=== PATIENT | male | born 1950 | race Caucasian/White ===

== ENCOUNTER → 2021-03-20 | Outpatient (CLI) | payer MEDICARE ==
--- NOTE | 2021-03-21 04:11 | MR ---
EXAMINATION TYPE: MR lumbar spine wo con DATE OF EXAM: 03/20/2021 COMPARISON: None HISTORY: NO prior, low back pain, right hip pain, osteoarthritis Multiplanar multiecho imaging of the lumbar spine without contrast. There is patchy mixed signal pattern throughout the lumbar vertebra. There is anterior wedging of T12 vertebra 40%. Fracture appears old. There is L1 and L2 and L3-4 and L4-5 posterior disc bulging with some encroachment on the spinal canal. There is developmentally large spinal canal and no significan t stenosis. There is no lumbar paraspinal mass. The posterior elements are intact. Lumbar nerve roots appear intact. There is mild multilevel neural foraminal narrowing due to disc space narrowing and f acet arthropathy. IMPRESSION: Multilevel spondylotic changes. Patchy signal pattern consistent with variable fatty marrow replaceme nt. No suspicious bone lesion. Compression fracture of T12 appears old.
== END | disposition home or self-care (01) ==
LOC: RADMRIMAIN 20:16
PROVIDERS: ATTEND Orthopaedic Surgery Orthopaedic Surgery of the Spine
DX: M54.50 Low back pain, unspecified (principal); M25.551 Pain in right hip; Z87.311 Personal history of (healed) other pathological fracture
CPT/HCPCS: 72148

== ENCOUNTER 2021-12-29 07:47 | Day surgery (SDC) | payer MEDICARE ==
[~2021-12-29 07:47] MED LIST: LACTATED RINGERS 1,000 ML IV SCH
[2021-12-29 08:10] VITALS: TEMP 98
[2021-12-29] MEDS ORDERED: PROPOFOL 10 MG/ML 20 ML VIAL IV ONE (08:58)
[2021-12-29] MEDS ORDERED: LIDOCAINE 2% INJ 20 MG/ML (2 ML VIAL) ONE (08:58)
--- NOTE | 2021-12-29 09:21 | P.PCN ---
Date of Procedure: 12/29/21 Procedure(s) Performed: Brief history: Patient is a pleasant 71-year-old white female scheduled for an elective upper endoscopy as well as colonoscopy as a part of evaluation of right upper quadrant abdominal pain, unintentional weight loss of 40 pounds and recently diagnosed with chronic hep C infection. He had a CT of abdomen and pelvis showed that revealed multiple solid and cystic masses in the liver suspicious for metastasis versus hepatoma. He Has No Prior History of EGD or Colonoscopy. Procedure performed: Esophagogastroduodenoscopy with biopsy Colonoscopy Preoperative diagnosis: Right upper quadrant abdominal pain, unintentional weight loss of [address] of the abdomen revealed multiple solid and cystic lesions suspicious for metastasis versus hepatoma Anesthesia: MAC Procedure: After informed consent was obtained from the patient was brought into the endoscopy unit and IV sedation was administered by anesthesia under continuous monitoring. Initially upper endoscopy was done. The Olympus GF 160 video endoscope was inserted inserted into the mouth and esophagus intubated without any difficulty and was gradually advanced into the stomach and duodenum and carefully examined. The bulb and second part of the duodenum appeared normal. The scope was then withdrawn into the stomach adequately insufflated with air and upon careful examination the antrum and body, cardia and fundus appeared normal. The scope was then withdrawn into the esophagus. The GE junction was located at 40 cm to the incisors. It appeared regular with no erythema erosions or ulcerations. Rest of the esophagus appeared normal. Patient tolerated the procedure well. At this time the patient continued to remain sedation. Initial digital rectal examination was normal. Olympus CF 160 video colonoscope was then inserted into the rectum and gradually advanced to the cecum without any difficulty. Careful examination was performed as the scope was gradually being withdrawn. The prep was excellent. The cecum, ascending colon, transverse colon, descending colon, sigmoid colon and rectum appeared normal. Retroflexion was performed in the rectum and no lesions were noted. Patient tolerated the procedure well. Impression: 1. Endoscopy revealed small esophageal varices, Cuellar's esophagus and hiatal hernia 2. Colonoscopy was within normal limits with no evidence of colorectal neoplasia Recommendations: Findings of this examination were discussed with the patient as well as his family. He was advised to follow with the biopsy results. In the meantime the patient will be investigated further. He scheduled for an MRI of the liver and he'll be seen in office in 2 weeks.
[2021-12-29 09:26] VITALS: BP 151/91; PULSE 83; RESP 16
== END 2021-12-29 10:02 | disposition home or self-care (01) ==
LOC: ORWHC2ENDO 07:47
PROVIDERS: ATTEND Internal Medicine Gastroenterology
DX: Z12.11 Encounter for screening for malignant neoplasm of colon (principal); K22.70 Barrett's esophagus without dysplasia; B18.2 Chronic viral hepatitis C; I25.10 Atherosclerotic heart disease of native coronary artery without angina pectoris; F12.90 Cannabis use, unspecified, uncomplicated; Z88.5 Allergy status to narcotic agent; Z88.8 Allergy status to other drugs, medicaments and biological substances
CPT/HCPCS: 88305; 43239; G0121; J2704; J2001; 45378

== ENCOUNTER → 2021-12-29 | Outpatient (CLI) | payer MEDICARE ==
[2021-12-29 16:00] LABS: Basophils # (A) 0.07 X 10*3/uL (0.00-0.10); Basophils % (A) 0.8 %; Eosinophils # (A) 0.05 X 10*3/uL (0.04-0.35); Eosinophils % (A) 0.6 %; HCT 40.8 % (39.6-50.0); HGB 13.8 g/dL (13.0-17.0); Immature Grans, Automated 0.4 %; Lymphocytes # (A) 2.29 X 10*3/uL (0.90-5.00); Lymphocytes % (A) 27.5 %; MCH 31.7 pg (27.0-32.0); MCHC 33.8 g/dL (32.0-37.0); MCV 93.6 fL (80.0-97.0); Mean Platelet Volume 11.1 fL (9.5-12.2); Monocytes # (A) 0.72 X 10*3/uL (0.20-1.00); Monocytes % (A) 8.6 %; NRBC Per 100 WBC 0 /100 WBCS (0.0-0.0); Neutrophils # (A) 5.18 X 10*3/uL (1.80-7.70); Neutrophils % (A) 62.1 %; Platelet Count 244 X 10*3/uL (140-440); RBC 4.36 X 10*6/uL (4.40-5.60); RDW 19.2 % (11.5-14.5); WBC 8.34 X 10*3/uL (4.50-10.00)
[2021-12-29 16:06] LABS: African American GFR (CKD) 101.2 (60.0-200.0); Albumin 2.8 g/dL (3.8-4.9); Albumin/Globulin Ratio 0.45 (1.60-3.17); Anion Gap 9.7 mmol/L (10.00-18.00); BUN/Creat Ratio 13.74 Ratio (12.00-20.00); Blood Urea Nitrogen 12.2 mg/dL (9.0-27.0); Calcium 9.7 mg/dL (8.7-10.3); Globulin 6.3 g/dL (1.6-3.3); Non-African American GFR(CKD) 87.3 (60.0-200.0); Potassium 4.4 mmol/L (3.5-5.5); Total Bilirubin 2.1 mg/dL (0.30-1.20); Total Protein 9.1 g/dL (6.2-8.2)
[2021-12-29 16:55] LABS: Carcinoembryonic Antigen 3.7 ng/mL (0.0-4.9)
[2021-12-30 19:01] LABS: Cancer Antigen 19-9 89.5 U/mL (0.0-34.9)
== END | disposition home or self-care (01) ==
LOC: LABWHC1 10:09
PROVIDERS: ATTEND Internal Medicine Gastroenterology
DX: K76.9 Liver disease, unspecified (principal); B18.2 Chronic viral hepatitis C
CPT/HCPCS: 36415; 80053; 82105; 82378; 85025; 86301; 87522

== ENCOUNTER → 2022-01-03 | Outpatient (CLI) | payer MEDICARE ==
--- NOTE | 2022-01-04 05:20 | MR ---
EXAMINATION TYPE: MR liver wo/w con DATE OF EXAM: 01/03/2022 COMPARISON: Chest CT scan 11/22/2021 HISTORY: Liver disease, abnoramal CT CONTRAST: Standard multiplanar, multisequence MRI departmental protocol images were obtained without contrast a nd with 6 mL intravenous Gadavist gadolinium contrast. On the T2 images there are numerous variable sized foci of decreased signal in the liver. Largest les ion measures 6.5 cm. Most of the lesions are less than 3 cm. Lesions mostly in the right lobe of the liver. There is sparing of the left lobe. Contrast images show some septal enhancement of the lesions . Liver lesions are not cysts. The liver masses showed less enhancement than the normal-appearing katia er. The spleen is intact. No evidence of pancreatic mass. Pancreatic duct appears normal. The bile breast s are not dilated. The stomach is intact. There is no adrenal mass. Kidneys show satisfactory contrast opacification. No hydronephrosis. No ret roperitoneal adenopathy. Left renal vein is posterior to the aorta. No ascites. There are small pleur al effusions. There is normal enhancement of the portal venous system. IMPRESSION: Numerous variable sized liver lesions in the right lobe and sparing of the left lobe with septal enha ncement are suggestive of malignancy. This could be primary liver tumor or metastatic disease. No pancreatic mass.
== END | disposition home or self-care (01) ==
LOC: RADMRIMAIN 19:50
PROVIDERS: ATTEND Internal Medicine Gastroenterology
DX: K76.9 Liver disease, unspecified (principal)
CPT/HCPCS: 74183; A9585

== ENCOUNTER → 2022-02-02 | Outpatient (CLI) | payer MEDICARE ==
[2022-02-02 16:08] LABS: African American GFR (CKD) >90 (>60 ml/min/1.73 sqM); Blood Urea Nitrogen 14 mg/dL (9-20); Non-African American GFR(CKD) 88 (>60 ml/min/1.73 sqM)
--- NOTE | 2022-02-02 22:25 | CT ---
EXAMINATION TYPE: CT lumbar spine wo/w con CT DLP: 941.2 mGycm, Automated exposure control for dose reduction was used. DATE OF EXAM: 02/02/2022 5:24 PM COMPARISON: MRI lumbar 03/20/2021 and MRI liver 01/03/2022. CLINICAL INDICATION:Male, 71 years old with history of C22.7 CARCINOMA OF LIVER; , Low Back pain TECHNIQUE: Multiple axial images were obtained from the midportion of T11 through the sacroiliac ofelia nts. Soft tissue and bone windows in coronal and sagittal planes were obtained and reviewed. 3-D ref ormats of the bones were created on a separate workstation and submitted for review. Contrast used: mL of Isovue 300 with IV Contrast, Oral contrast used: none. FINDINGS: Alignment: There are 5 lumbar type vertebral bodies. There is dextroscoliosis apex no one and levosco liosis apex L4. Bone: Sclerotic focus within the L3 vertebral body measuring 9 mm consistent with bone island. There is endplate sclerosis and narrowing of the L1-L2 adjoining endplates. The L1 vertebral body has compression deformity which is similar to 03/20/2021 MRI. There is not felt to be an acute fracture of the L1 vertebral body. No suspicious osseous lesion identified. Discs: T12-L1: Osseous spurring posteriorly with facet joint arthropathy with moderate spinal canal stenosis and moderate left and mild right neural foraminal stenosis. Mild retropulsion at the T12 level. L1-L2: Disc bulge and facet joint arthropathy with moderate spinal canal and severe left and moderate right neural foraminal stenosis. L2-L3: Disc bulge and facet joint arthropathy with moderate spinal canal and moderate left and mild r ight neural foraminal stenosis. L3-L4: Disc bulge and facet joint arthropathy with moderate spinal canal and moderate right and mild left neural foraminal stenosis. L4-L5: Disc bulge and facet joint arthropathy with moderate spinal canal and moderate right and mild left neural foraminal stenosis. L5-S1: No spinal canal stenosis. Facet joint arthropathy with moderate bilateral neural foraminal brooke nosis. Other: Atherosclerosis of the arterial vasculature. Trace right pleural effusion. IMPRESSION: 1. No evidence of fracture of the lumbar spine. 2. Similar compression deformity of the L1 vertebral body dating back to 03/20/2021. 3. Moderate to severe degeneration changes throughout the spine with multilevel moderate spinal canal stenosis and multilevel varying degrees of neural foraminal stenosis.
== END | disposition home or self-care (01) ==
LOC: RADCTMAIN 15:19
PROVIDERS: ATTEND Internal Medicine
DX: C22.7 Other specified carcinomas of liver (principal); M51.36 Other intervertebral disc degeneration, lumbar region; M48.061 Spinal stenosis, lumbar region without neurogenic claudication
CPT/HCPCS: 82565; 84520; 72133; 36415; Q9967

== ENCOUNTER → 2022-10-12 | Outpatient (CLI) | payer MEDICARE ==
[2022-10-12 15:19] LABS: African American GFR (CKD) >90 (>60 ml/min/1.73 sqM); Blood Urea Nitrogen 10 mg/dL (9-20); Non-African American GFR(CKD) >90 (>60 ml/min/1.73 sqM)
--- NOTE | 2022-10-14 20:23 | CT ---
EXAMINATION TYPE: CT chest w con CT DLP: 266.9 mGycm, Automated exposure control for dose reduction was used. DATE OF EXAM: 10/12/2022 4:28 PM COMPARISON: 05/18/2022 CLINICAL INDICATION:Male, 72 years old with history of C22.7 OTHER SPECIFIED CARCINOMAS OF LIVER; PHH , obs for mets hx of liver ca TECHNIQUE: Multiple axial images were obtained through the chest. Sagittal and coronal reformats were created for review. Contrast used:100 mL of Isovue 300 with IV Contrast (None if empty) Oral contrast used: (None if empty) FINDINGS: LUNGS/ PLEURA: Stable right middle lobe 10 mm pulmonary nodule compared to 05/18/2022. This was previo usly 14 mm on 11/22/2021. No focal consolidation, pneumothorax or pleural effusion. No new or enlargin g pulmonary nodules. AIRWAY: Patent and unremarkable. HEART: The heart is mildly enlarged for size with coronary artery calcifications. MEDIASTINUM: No gross evidence of adenopathy. VASCULATURE: No aortic aneurysm. No evidence for pulmonary arterial vasculature filling defect to woodruff ggest pulmonary embolus. MUSCULOSKELETAL: No acute osseous abnormalities SOFT TISSUES/LYMPH NODES: Unremarkable. LOWER NECK: No significant findings. UPPER ABDOMEN: Nodular contour to liver with scattered arterial phase hyperenhancing lesions througho ut the liver which not definitively seen on most recent prior. IMPRESSION: 1. No new or enlarging pulmonary nodules, stable to most recent prior right middle lobe pulmonary no dule measuring 10 mm. 2. No lymphadenopathy. 3. Hepatic cirrhosis with arterial phase hyperenhancing heterogenous appearance to the right hepatic lobe, otherwise findings are suggestive of malignancy possibly progression of hepatic primary malign nicol. Trace ascites present.
== END | disposition home or self-care (01) ==
LOC: RADCTMAIN 14:34
PROVIDERS: ATTEND Internal Medicine
DX: C22.7 Other specified carcinomas of liver (principal); K74.60 Unspecified cirrhosis of liver
CPT/HCPCS: 82565; 84520; 71260; 36415; Q9967